=== PATIENT | male | born 1935 | race African-American/Black ===

== ENCOUNTER 2016-09-15 18:22 | Inpatient (IN) | payer OTHER ==
[~2016-09-15] VITALS: Ht 175.3 cm; Wt 71.2 kg
--- NOTE | ~2016-09-15 | HC ---
[facility] [place] [address] CONSULTATION Name: MARK PEMBERTON Room #: 402-P [facility] IN M.R.#: [id number] Admission: 09/15/16 Attend Phys: Olayinka Smith MD Discharge: Date of : 36 Report #: [id number] THIS REPORT FOR: //name// CC: Olayinka Serrato REASON FOR CONSULTATION: The patient is an 81-year-old male with anemia and hematemesis. He does have a history of esophagitis. HISTORY OF PRESENT ILLNESS: This 81-year-old male is a poor historian. According to the medical record, he had dark brown emesis yesterday. He was brought to [facility] Emergency Room. His hemoglobin was 8.8 initially and upon repeat this morning, it was 7.0. Review of his labs indicates that he has had a longstanding history of anemia and microcytosis. He has been anemic going all the way back to the beginning of his data in the computer to June 2012, and a hemoglobin of 9.4, and at that time he had an MCV of 85. His MCV has been drifting down since that time and it is now to a new low for this patient at 59.3. White count is 13.8. His electrolytes are normal. BUN is elevated at 34. Last January, it was 13. His creatinine is 2.6. Last January, it was 1.3. Albumin was 3.5, lactic acid was 3.1. Last January iron studies revealed a serum iron of 10, TIBC of 310 and a saturation of 3%. His ferritin this past January was 8. It is noted in August of 2014, he had a B12 of 219. At that time, his folic acid was 8.3. The patient does report vomiting; however, he cannot tell me much about it. He also cannot tell me much about his stools. It was noted in March of 2015, he did have Hemoccult positive stool. He has had several upper endoscopies here at [facility], with the last in January of [address] Thomas. At that time, he had a normal-appearing esophagus. His upper esophagus is normal mid and distally. There are multiple ulcerations consistent with severe grade D erosive esophagitis. There was a large amount of food and liquid in the stomach suggesting the possibility of gastroparesis. Duodenum was normal. Pathology revealed gastritis that was negative for H. pylori. Esophageal biopsies revealed gastric fundal type mucosa with acute inflammatory changes. Intestinal metaplasia was not seen. CMV and HSV veins were negative. PAST MEDICAL HISTORY: Apparently he has had C. diff colitis in the past. He has had a DVT, IVC filter was placed. He has been treated for high blood pressure and hemorrhoids. He apparently had colon surgery for benign colon lesion. He does have a history of ulcer disease. He has stage III chronic kidney disease. He has been treated for reflux. He has also had a hernia repair. ALLERGIES: No known allergies. HOME MEDICATIONS: He cannot tell me his home medicines, but listed in the [facility] [address] [place] [address] CONSULTATION Name: MARK PEMBERTON Room #: 402-P ADM IN M.R.#: [id number] Admission: 09/15/16 Attend Phys: Olayinka Smith MD Discharge: Date of : 36 Report #: [id number] database are acetaminophen, omeprazole 20 mg daily and sucralfate 1 gram a.c. and at bedtime. FAMILY HISTORY: Reports there is no family history of colon cancer. SOCIAL HISTORY: He lives in his own home. He is cared for by family. He never smoked cigarettes. He did smoke pipe in the past. He has never consumed much alcohol. I do not see that the patient has been on iron therapy. REVIEW OF SYSTEMS: GENERAL: No change in weight, fever or chills. CENTRAL NERVOUS SYSTEM: He denies seizures or strokes. EARS, NOSE AND THROAT: He says his vision and hearing are good for his age. PULMONARY: No cough. He has had pneumonia in the past. No history of tuberculosis. Smoked pipes in the past. CARDIOVASCULAR: No chest pain, chest tightness or palpitations. GASTROINTESTINAL: He has had recent vomiting and hematemesis. He has had a benign colon lesion removed in the past. It is not clear the timing of his last colonoscopy. GENITOURINARY: Chronic kidney disease stage 3 without dysuria. MUSCULOSKELETAL: No arthralgias or myalgias. SKIN: Without rashes. PSYCHIATRIC: No depression, no anxiety or bipolar illness. ENDOCRINE: He denies diabetes or thyroid problems. HEMATOLOGIC: No bleeding or bruising, no malignancy. PHYSICAL EXAMINATION: GENERAL: The patient is a well-developed, well-nourished and pleasant male who is awake, alert and oriented, in no acute distress. I am told that he has periods of confusion, but he seemed to be alert and oriented this morning; however, he does not give a lot of details. I am uncertain about the details of his history. VITAL SIGNS: Blood pressure 97/56 and pulse 72. HEENT: He is anicteric. Pupils equal and round. Oropharynx clear. NECK: Supple. CHEST: Clear. HEART: Regular rate and rhythm, normal S1 and normal S2. ABDOMEN: Well-healed midline scar. Normal bowel sounds, soft and nontender, without hepatosplenomegaly or masses. RECTAL: Not done. EXTREMITIES: Without peripheral edema. NEUROLOGIC: Oriented to place, place and time, moves all 4 extremities well. ASSESSMENT: 1. Hematemesis. 2. Iron deficiency anemia. [facility] [address] [place] [address] CONSULTATION Name: MARK PEMBERTON Room #: 402-P [facility] IN M.R.#: [id number] Admission: 09/15/16 Attend Phys: Olayinka Smith MD Discharge: Date of : 36 Report #: [id number] 3. History of B12 deficiency. 4. Chronic kidney disease, stage III. 5. History of colon lesion. 6. Gastroparesis. 7. History of deep vein thrombosis with indwelling filter. COMMENTS: There is a report of hematemesis. He has had esophagitis in the past. He denies symptoms. He currently is on omeprazole. I suspect he has mostly chronic iron deficiency anemia, which it looks like it has never been well managed, as well as acute blood loss with hematemesis. Also, it looks like he has had B12 deficiency in the past. RECOMMENDATIONS: 1. Upper endoscopy this morning to evaluate the hematemesis. 2. He will likely need more intensive therapy for his gastroesophageal reflux. 3. Consider further treatment for gastroparesis depending on endoscopic findings. He had been on metoclopramide at some point in the past. 4. We will check B12 level. 5. Iron replacement, we will give him iron infusions here in the hospitalization. 6. If reflex is not well controlled, an antireflux procedure may be indicated, although the patient is 81 years' old. 7. Also M2 capsule study may be a consideration as well. <ELECTRONICALLY SIGNED> By: Primitivo Araiza MD 09/18/16 1225 0825 1425 Primitivo Araiza MD /nt
--- NOTE | ~2016-09-15 | P ---
[facility] [place] [address] PROCEDURE REPORT Name: MARK PEMBERTON JR Room #: 402-P [facility] IN M.R.#: [id number] Admission: 09/15/16 Attend Phys: Olayinka Smith MD Discharge: Date of : 36 Report #: [id number] THIS REPORT FOR: //name// CC: Olayinka Ward DO BRIEF HISTORY: The patient is an 81-year-old male with hematemesis. He has a known history of esophagitis and iron deficiency anemia. There is also questionable prior history of Linares esophagus. PREOPERATIVE DIAGNOSIS: Hematemesis. POSTOPERATIVE DIAGNOSES: 1. Severe grade D esophagitis, cannot exclude Linares's. 2. Gastric deformity consistent with prior gastric surgery, questionably enterectomy. 3. Retained black material in the stomach consistent with upper GI bleeding. MEDICATIONS: Deep sedation with propofol per anesthesia. SPECIMEN: None. ESTIMATED BLOOD LOSS: None. PROCEDURE: EGD. FINDINGS: Prior to propofol sedation, procedure of upper endoscopy was discussed with the patient, all potential risks, benefits, and complications. He indicates he understands and desires to proceed. With the patient in left lateral decubitus position, the Sifti video endoscope was inserted in the cervical esophagus under direct vision without difficulty. Examination of this organ through its entire length revealed normal esophageal mucosa in the very proximal esophagus; however, the scope was advanced in the mid esophagus, there was noted to be extensive esophagitis or ulceration and friability and some blackish material, but no active bleeding. These findings are similar to previous endoscopic findings. The scope was advanced in the gastroesophageal junction, a hiatus hernia was not seen. No strictures or masses were seen. Scope was advanced in the stomach, was examined on end view as well as retroflexed views. The gastric mucosa was coated with blackish material consistent with upper GI bleeding. Bright red blood was not seen. Active bleeding was not seen. There was a fairly large the stomach was quite limited. That was too thick to aspirate through the scope. Examination of the cardia did not reveal an obvious mass lesion. Examination of distal stomach revealed a gastroduodenal anastomosis. He probably had an enterectomy. However, he does not have specific details on that surgical procedure. The [address] [address] PROCEDURE REPORT Name: MARK PEMBERTON Room #: 402-P [facility] IN ..#: [id number] Admission: 09/15/16 Attend Phys: Olayinka Smith MD Discharge: Date of : 36 Report #: [id number] duodenal bulb appears to be intact. I could see the papilla in the second portion of duodenum and there was a small diverticulum located by the papilla. There was clear yellow bile in the duodenum. The third portion of duodenum was unremarkable. At that point, the scope was slowly withdrawn and careful circumferential views confirmed the above findings. The patient tolerated the procedure well. DISPOSITION: The patient with chronic iron deficiency anemia with declining MCV. Once again, demonstration of severe esophagitis. There is old blood in the stomach suggesting this is the source of his blood loss. We will place him on b.i.d. PPI. Also, place him on sucralfate suspension. He needs very intensive management of reflux disease. He has had gastroparesis in the past and we will place him on IV metoclopramide at this point in time. However, he may be better served with the use of erythromycin on a long-term basis. Previous biopsies for H. pylori were negative. I did not biopsy the esophagus due to the severe esophagitis. However, we should return in about 6-8 weeks for repeat endoscopy and hopefully biopsy the esophagus with hopefully clear esophagitis. He is also iron deficient and we will replace iron. He has been B12 deficient in the past and we will check a B12 level once again. In addition, we will discuss with family in our system there was no record of a colonoscopy. Certainly, he is bleeding from the upper GI tract at this point in time, but in view of his iron deficiency anemia, we need to make sure that he has had a previous examination of his colon. <ELECTRONICALLY SIGNED> By: Primitivo Araiza MD 09/18/16 1225 0901 0934 Primitivo Araiza MD /nt
--- NOTE | ~2016-09-15 | EKG ---
[place] [address] [employer] [facility] [address] ELECTROCARDIOGRAM REPORT Name: NILAYMARK Room #: 219-P ADM IN M.R.#: [id number] Admission: 09/15/16 Attend Phys: Olayinka Smith MD Discharge: Date of : 36 Report #: [id number] THIS REPORT FOR: //name// [facility] ED Test Date: 2016-09-15 Test Time: 19:08:25 Pat Name: MARK PEMBERTON Department: Room: 219 Gender: M Mouthpiece Maker: MZOOK : 1935 Requested By: Madelin Flannery Order Number: [id number] MD: Sudeep Armenta Measurements Intervals [place] Rate: 124 P: 46 TN: 140 QRS: -28 QRSD: 79 T: 37 QT: 368 QTc: 529 Interpretive Statements Atrial tachycardia Minimal ST depression ST elevation, consider inferior injury Baseline wander in lead(s) I,II,aVR,aVL Compared to ECG 01/06/2016 17:17:48 ST (T wave) deviation now present Sinus tachycardia no longer present Myocardial infarct finding still present Electronically Signed On 09-16-2016 8:21:05 ORTHOTIC AND PROSTHETIC TECHNICIAN by Sudeep Armenta [email or web address] <ELECTRONICALLY SIGNED> By: Sudeep Armenta MD 09/16/16 0821 07 07 Sudeep Armenta MD /EPI
[~2016-09-15 18:22] MED LIST: AMOXICILLIN500 M1 PO; ASA5UEC PO; ASPIRIN EC325 M1 PO; B12INJ IM; BIAXIN 250MG T250 M1 PO; BIAXIN 500 MG500 M2; CARAFATE 1 GM TA1 G1 PO; CEPHALEXIN 500500 M1; CIPROFLOXACIN500 M1 PO; DEXILANT60 MG PO; ERYPED 200200 MG/51 PO; FLAGYL500 MG PO; HYDROCODONE-AP1 EAC6 PO; LANSOPRAZOLE30 MG PO; LASIX 20 MG TAB20 MG PO; LASIX 40 MG TAB40 M2 PO; LISINOPRIL10 MG PO; LISINOPRIL20 MG PO; LOMOTIL TABLET1 EACH PO; MEGESTROL40 MG/1 M1; NORCO 5-325 TA1 EACH PO; PEPCID20 MG PO; PROTONIX40 M1 PO; REGLAN 10 MG TA10 MG PO; TYLENOL325 MG PO; VANCOMYCIN100 MG/M1 NG
[2016-09-15 18:30] VITALS: BP 120/66
[2016-09-15] MEDS ORDERED: OMEPRAZOLE20 M1 PO (18:52)
[2016-09-15 19:01] LABS: HEMATOCRIT 28.6 % (42.0-52.0); HEMOGLOBIN 8.8 gm/dL (14.0-18.0); MCH 18.3 pg (26.0-34.0); MCHC 30.8 % (28.0-37.0); MCV 59.3 fL (80.0-100.0); PLATELET COUNT 338 thou/uL (150-400); RBC 4.83 mil/uL (4.50-6.00); RDW 17.2 % (10.5-14.5); WBC 13.8 thou/uL (4.0-11.0)
[2016-09-15 19:07] LABS: MANUAL DIFF YES
[2016-09-15 19:14] LABS: ANION GAP 15 mmol/L (7-16); BUN 34 mg/dL (7-18); CALCIUM 9.1 mg/dL (8.5-10.1); CHLORIDE 103 mmol/L (98-107); CO2 21 mmol/L (21-32); CREATININE 2.6 mg/dL (0.6-1.3); GLUCOSE 115 mg/dL (70-99); POTASSIUM 5.1 mmol/L (3.5-5.1); SODIUM 139 mmol/L (136-145)
[2016-09-15 19:19] LABS: ALBUMIN 3.5 g/dL (3.4-5.0); ALKALINE PHOSPHATASE 89 U/L (46-116); SGOT 21 U/L (15-37); SGPT 12 U/L (30-65); TOTAL BILIRUBIN 0.6 mg/dL (<0.1-1.0); TOTAL PROTEIN 6.9 g/dL (6.4-8.2); TROPONIN-I < 0.04 ng/mL (<0.04-0.07)
[2016-09-15 19:29] LABS: ABSOLUTE NEUTROPHILS 11.9 thou/uL (1.4-8.2); TOTAL CELL COUNT 100
[2016-09-15 19:30] LABS: ANISOCYTOSIS 1+; MICROCYTES 1+
[2016-09-15 21:42] VITALS: BP 108/58
[2016-09-15 21:57] LABS: URINE BILIRUBIN NEGATIVE (Negative); URINE BLOOD NEGATIVE (Negative); URINE COLOR YELLOW; URINE GLUCOSE-RANDOM* NEGATIVE (Negative); URINE KETONES TRACE (Negative); URINE LEUKOCYTES-REFLEX NEGATIVE (Negative); URINE PROTEIN (DIPSTICK) NEGATIVE (Negative)
[2016-09-15 22:15] VITALS: BP 104/61
[2016-09-15 23:35] VITALS: BP 113/60
[2016-09-16 03:53] LABS: HEMATOCRIT 23.2 % (42.0-52.0)
[2016-09-16 04:00] VITALS: BP 97/56
[2016-09-16 05:38] VITALS: BP 92/48; BP 93/49; BP 96/59
[2016-09-16 13:05] VITALS: BP 122/64
[2016-09-16 13:38] LABS: HEMATOCRIT 26.9 % (42.0-52.0); HEMOGLOBIN 8.4 gm/dL (14.0-18.0); MCHC 31.4 % (28.0-37.0); MCV 63.8 fL (80.0-100.0); RBC 4.21 mil/uL (4.50-6.00); RDW 18.5 % (10.5-14.5); WBC 7.6 thou/uL (4.0-11.0)
[2016-09-16 14:01] LABS: ALBUMIN 2.9 g/dL (3.4-5.0); ALKALINE PHOSPHATASE 71 U/L (46-116); ANION GAP 9 mmol/L (7-16); BUN 30 mg/dL (7-18); CALCIUM 8.4 mg/dL (8.5-10.1); CHLORIDE 107 mmol/L (98-107); CO2 23 mmol/L (21-32); CREATININE 1.9 mg/dL (0.6-1.3); GLUCOSE 125 mg/dL (70-99); POTASSIUM 4.1 mmol/L (3.5-5.1); SGOT 7 U/L (15-37); SGPT 9 U/L (30-65); SODIUM 139 mmol/L (136-145); TOTAL BILIRUBIN 0.5 mg/dL (<0.1-1.0); TOTAL PROTEIN 5.6 g/dL (6.4-8.2); TROPONIN-I < 0.04 ng/mL (<0.04-0.07)
[2016-09-16 15:25] VITALS: BP 94/58
[2016-09-16 19:05] VITALS: BP 75/43
[2016-09-17 04:00] VITALS: BP 100/61
[2016-09-17 06:17] LABS: HEMATOCRIT 23.7 % (42.0-52.0); HEMOGLOBIN 7.6 gm/dL (14.0-18.0); MCHC 31.9 % (28.0-37.0); MCV 62.8 fL (80.0-100.0); RBC 3.78 mil/uL (4.50-6.00); RDW 18.8 % (10.5-14.5); WBC 7.2 thou/uL (4.0-11.0)
[2016-09-17 09:25] VITALS: BP 111/65
[2016-09-17 12:26] VITALS: BP 111/65
[2016-09-17 12:41] VITALS: BP 111/65
[2016-09-17 16:00] VITALS: BP 129/69
[2016-09-17 18:22] LABS: HEMATOCRIT 30.4 % (42.0-52.0); HEMOGLOBIN 9.5 gm/dL (14.0-18.0)
[2016-09-17 20:00] VITALS: BP 123/70
[2016-09-18] VITALS: BP 132/70
[2016-09-18 04:00] VITALS: BP 147/71
[2016-09-18 08:00] VITALS: BP 126/61
[2016-09-18 09:14] LABS: HEMATOCRIT 27.6 % (42.0-52.0); HEMOGLOBIN 8.7 gm/dL (14.0-18.0); MCH 20.2 pg (26.0-34.0); MCHC 31.5 % (28.0-37.0); MCV 64.1 fL (80.0-100.0); RBC 4.31 mil/uL (4.50-6.00); RDW 18.8 % (10.5-14.5)
[2016-09-18 10:32] VITALS: BP 111/65
[2016-09-18] MEDS ORDERED: REGLAN 10 MG TA10 MG PO (11:53)
[2016-09-18] MEDS ORDERED: OMEPRAZOLE20 M1 PO (11:53)
[2016-09-18 14:55] VITALS: BP 111/65
[2016-09-18 15:43] VITALS: BP 111/65
== END 2016-09-18 15:47 | disposition home health service (06) | DRG 377 ==
LOC: ER 18:22 → 2N 20:52 → EROBS 20:52 → 2N 21:58 → 4N 09-16 19:24
PROVIDERS: Emergency Medicine; Family Medicine; Hospitalist; Internal Medicine Gastroenterology; Nurse Practitioner
PROC: 0DJ08ZZ Inspection of Upper Intestinal Tract, Via Natural or Artificial Opening Endoscopic (ICD-10-PCS; principal; 2016-09-16)
PROC: 30233N1 Transfusion of Nonautologous Red Blood Cells into Peripheral Vein, Percutaneous Approach (ICD-10-PCS; principal; 2016-09-16)
DX: K92.0 Hematemesis (principal); N17.0 Acute kidney failure with tubular necrosis; I13.0 Hypertensive heart and chronic kidney disease with heart failure and stage 1 through stage 4 chronic kidney disease, or unspecified chronic kidney disease; D62 Acute posthemorrhagic anemia; E44.0 Moderate protein-calorie malnutrition; K92.2 Gastrointestinal hemorrhage, unspecified; K20.9 Esophagitis, unspecified; I50.9 Heart failure, unspecified; R11.10 Vomiting, unspecified; N18.3 Chronic kidney disease, stage 3 (moderate); K21.9 Gastro-esophageal reflux disease without esophagitis; F10.21 Alcohol dependence, in remission; K31.84 Gastroparesis; K20.8 Other esophagitis; I25.2 Old myocardial infarction; Z86.19 Personal history of other infectious and parasitic diseases; Z79.899 Other long term (current) drug therapy; Z87.11 Personal history of peptic ulcer disease; Z86.718 Personal history of other venous thrombosis and embolism; Z68.23 Body mass index [BMI] 23.0-23.9, adult
CPT/HCPCS: 10081; 10790; 62110; 62900; 70005

== ENCOUNTER 2017-01-07 15:59 | Inpatient (IN) | payer OTHER ==
[~2017-01-07] VITALS: Ht 175.3 cm; Wt 70.5 kg
--- NOTE | ~2017-01-07 | P ---
[facility] [place] [address] PROCEDURE REPORT Name: MARK PEMBERTON JR Room #: 444-P [facility] IN M.R.#: [id number] Admission: 01/07/17 Attend Phys: Yesi Nettles Discharge: 01/09/17 Date of : 36 Report #: [id number] THIS REPORT FOR: //name// CC: Yesi Ward DO DATE OF SERVICE: 01/08/2017 PROCEDURE: Diagnostic EGD. PATIENT OF: Dr. Nettles and Dr. Khurram Ward. CHIEF COMPLAINT: The patient presented to the Emergency Room with a history of coffee ground emesis. 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 He has been nauseated. DESCRIPTION OF PROCEDURE: Informed consent for this procedure was obtained prior to the administration of any medication. The risks of the procedure which include bleeding, perforation, infection, complications of sedation and the possibility I could miss something have been explained to the patient and he has indicated his consent by signing and his daughter has indicated her consent verbally for him to have this done. The patient has some dementia. A total of fentanyl 25 mcg and Versed 2 mg was slowly titrated before and during this procedure for patient comfort by the GI nurses. The [employer] upper videoscope was introduced through the upper esophageal sphincter and advanced under direct visualization to the descending duodenum. Findings noted on withdrawal of the scope. The duodenal mucosa appears normal throughout its entirety. Pylorus, normal mucosa. Antrum, normal mucosa. Body, normal mucosa. Cardia and fundus, normal mucosa. There is old black blood in the proximal stomach at least old black liquid material in his proximal stomach, suctioned away as well as I could. I took pictures of everything in the upper GI tract and submitted them. There did not appear to be a hiatal hernia at this time. The scope was withdrawn into the esophagus. There is not really a clear Z-line until get up to about the mid esophagus. The patient has a history of Linares's ectopic mucosa. He also has a history of multiple episodes of grade D esophagitis that have led to cautery brown emesis such as this admission. The more proximal esophageal mucosa appears normal. The scope was withdrawn. The patient went to the recovery area in stable condition. He tolerated the procedure well. IMPRESSION: 1. Normal stomach and duodenum except for old dark blood in the stomach, but I think came from his esophagitis. [facility] [address] [place] [address] PROCEDURE REPORT Name: MARK PEMBERTON Room #: 444-P [facility] IN M.R.#: [id number] Admission: 01/07/17 Attend Phys: Yesi Nettles Discharge: 01/09/17 Date of : 36 Report #: [id number] 2. Erosions and erythema of the distal 10 cm of the esophagus. My recommendations were for him to be on proton pump inhibitors as he is. We will also add Carafate slurry 1 gram p.o. a.c. and at bedtime. We will check an H and H on him in the morning and we will start him on a soft diet tonight. Thank you very much once again for allowing me to participate in his care, Dr. Nettles and Dr. Ward. <ELECTRONICALLY SIGNED> By: Sherine Prado DO 01/14/17 1559 1823 2342 Sherine Prado DO /nt
--- NOTE | ~2017-01-07 | EKG ---
[place] [address] [facility] [place] [address] ELECTROCARDIOGRAM REPORT Name: MARK PEMBERTON [id number] Admission: 01/07/17 Attend Phys: Discharge: Date of : 36 Report #: [id number] THIS REPORT FOR: //name// [facility] ED Test Date: 2017-01-07 Test Time: 16:15:44 Pat Name: MARK PEMBERTON Department: Room: Gender: M Home Health Clinician: efraín : 1935 Requested By: Madelin Flannery Order Number: [id number] MD: Sudeep Armenta Measurements Intervals [place] Rate: 95 P: 29 MT: 183 QRS: -39 QRSD: 97 T: -13 QT: 365 QTc: 459 Interpretive Statements Sinus rhythm Multiple ventricular premature complexes Inferior infarct, old Electronically Signed On 01-07-2017 17:16:33 CDT by Sudeep Armenta [email or web address] <ELECTRONICALLY SIGNED> By: Sudeep Armenta MD 01/07/17 1716 1615 1615 Sudeep Armenta MD /EPI
[~2017-01-07 15:59] MED LIST changes: +OMEPRAZOLE20 M1 PO
[2017-01-07 16:01] VITALS: BP 117/72
[2017-01-07] MEDS ORDERED: LASIX 20 MG TAB20 MG PO (16:09)
[2017-01-07 16:45] LABS: HEMATOCRIT 43.8 % (42.0-52.0); HEMOGLOBIN 13.8 gm/dL (14.0-18.0); MCH 26.1 pg (26.0-34.0); MCHC 31.5 g/dL (28.0-37.0); PLATELET COUNT 217 thou/uL (150-400); RBC 5.27 mil/uL (4.50-6.00); RDW 14.8 % (10.5-14.5); WBC 10.9 thou/uL (4.0-11.0)
[2017-01-07 16:57] LABS: MANUAL DIFF YES
[2017-01-07 16:59] LABS: APTT 26.8 Seconds (24.5-32.8); PROTIME 10.7 Seconds (9.3-11.4)
[2017-01-07 17:01] LABS: ANION GAP 10 mmol/L (7-16); BUN 22 mg/dL (7-18); CALCIUM 8.6 mg/dL (8.5-10.1); CHLORIDE 107 mmol/L (98-107); CO2 23 mmol/L (21-32); CREATININE 1.4 mg/dL (0.7-1.3); GLUCOSE 79 mg/dL (74-106); POTASSIUM 4.4 mmol/L (3.5-5.1); SODIUM 140 mmol/L (136-145)
[2017-01-07 17:07] LABS: ALBUMIN 3.5 g/dL (3.4-5.0); ALKALINE PHOSPHATASE 99 U/L (46-116); NT-PRO BRAIN NAT PEPTIDE 220 pg/mL (<300); SGOT 19 U/L (15-37); SGPT 11 U/L (30-65); TOTAL BILIRUBIN 0.5 mg/dL (<0.1-1.0); TROPONIN-I < 0.04 ng/mL (<0.04-0.07)
[2017-01-07 17:19] LABS: ABSOLUTE NEUTROPHILS 9.5 thou/uL (1.4-8.2); TOTAL CELL COUNT 100
[2017-01-07 20:00] VITALS: BP 126/79
[2017-01-08 00:10] VITALS: BP 124/72
[2017-01-08 04:00] VITALS: BP 130/69
[2017-01-08 06:26] LABS: HEMATOCRIT 35.9 % (42.0-52.0); MCH 26.6 pg (26.0-34.0); MCHC 32.7 g/dL (28.0-37.0); MCV 81.4 fL (80.0-100.0); RBC 4.41 mil/uL (4.50-6.00); RDW 14.4 % (10.5-14.5); WBC 5.2 thou/uL (4.0-11.0)
[2017-01-08 06:41] LABS: HEMOGLOBIN 11.7 gm/dL (14.0-18.0)
[2017-01-08 06:47] LABS: CALCIUM 8.1 mg/dL (8.5-10.1); CREATININE 1.4 mg/dL (0.7-1.3); POTASSIUM 4.1 mmol/L (3.5-5.1)
[2017-01-08 08:00] VITALS: BP 117/62
[2017-01-08 13:07] VITALS: BP 122/61
[2017-01-08 19:29] VITALS: BP 135/66
[2017-01-08 23:50] VITALS: BP 123/72
[2017-01-09 03:58] VITALS: BP 127/62
[2017-01-09 04:42] LABS: HEMATOCRIT 38.2 % (42.0-52.0); HEMOGLOBIN 12.4 gm/dL (14.0-18.0); MCH 26.7 pg (26.0-34.0); MCHC 32.6 g/dL (28.0-37.0); MCV 81.8 fL (80.0-100.0); RBC 4.66 mil/uL (4.50-6.00); RDW 14.8 % (10.5-14.5); WBC 5.4 thou/uL (4.0-11.0)
[2017-01-09 08:00] VITALS: BP 133/71
[2017-01-09] MEDS ORDERED: OMEPRAZOLE20 M1 PO (09:48)
[2017-01-09] MEDS ORDERED: CARAFATE 1 GM TA1 G1 PO (09:48)
[2017-01-09 12:18] VITALS: BP 112/74
[2017-01-09 15:28] VITALS: BP 112/74
[2017-01-09 15:37] VITALS: BP 124/79
== END 2017-01-09 17:30 | disposition home or self-care (01) | DRG 380 ==
LOC: ER 15:59 → 4S 17:36 → EROBS 17:36 → 4S 19:47
PROVIDERS: Emergency Medicine; Nurse Practitioner Acute Care; Nurse Practitioner Adult Health
PROC: 0DJ08ZZ Inspection of Upper Intestinal Tract, Via Natural or Artificial Opening Endoscopic (ICD-10-PCS; principal; 2017-01-08)
DX: K22.10 Ulcer of esophagus without bleeding (principal); N17.0 Acute kidney failure with tubular necrosis; I50.9 Heart failure, unspecified; I11.0 Hypertensive heart disease with heart failure; F03.90 Unspecified dementia, unspecified severity, without behavioral disturbance, psychotic disturbance, mood disturbance, and anxiety; K92.0 Hematemesis; K59.00 Constipation, unspecified; K21.0 Gastro-esophageal reflux disease with esophagitis; Z87.891 Personal history of nicotine dependence; Z88.8 Allergy status to other drugs, medicaments and biological substances; Z86.718 Personal history of other venous thrombosis and embolism
CPT/HCPCS: 10195

== ENCOUNTER 2017-09-11 11:06 | Emergency (ER) | payer OTHER ==
[~2017-09-11] VITALS: Ht 175.3 cm; Wt 74.8 kg
[2017-09-11 12:01] LABS: CALCIUM 9.5 mg/dL (8.5-10.1); CREATININE 1.7 mg/dL (0.7-1.3); POTASSIUM 4.5 mmol/L (3.5-5.1)
[2017-09-11 12:03] LABS: HEMATOCRIT 30.4 % (42.0-52.0); HEMOGLOBIN 9.4 gm/dL (14.0-18.0); MCH 17.6 pg (26.0-34.0); MCHC 30.9 g/dL (28.0-37.0); PLATELET COUNT 318 thou/uL (150-400); RBC 5.34 mil/uL (4.50-6.00); RDW 17.6 % (10.5-14.5); WBC 6.3 thou/uL (4.0-11.0)
[2017-09-11 12:07] LABS: ALBUMIN 3.7 g/dL (3.4-5.0); DIRECT BILIRUBIN 0.1 mg/dL (<0.1-0.3); TOTAL BILIRUBIN 0.4 mg/dL (<0.1-1.0); TOTAL PROTEIN 7.1 g/dL (6.4-8.2)
[2017-09-11 12:21] LABS: ABSOLUTE NEUTROPHILS 4.7 thou/uL (1.4-8.2); ANISOCYTOSIS 1+; MICROCYTES 3+
[2017-09-11 12:22] LABS: HYPOCHROMASIA 3+
[2017-09-11 12:23] LABS: POIKILOCYTOSIS SLIGHT; SCHISTOCYTES OCCASIONAL
[2017-09-11 13:00] LABS: URINE BILIRUBIN NEGATIVE (Negative); URINE BLOOD NEGATIVE (Negative); URINE CLARITY CLEAR; URINE COLOR YELLOW; URINE GLUCOSE-RANDOM* NEGATIVE (Negative); URINE KETONES NEGATIVE (Negative); URINE LEUKOCYTES NEGATIVE (Negative); URINE NITRITE NEGATIVE (Negative); URINE PROTEIN (DIPSTICK) NEGATIVE (Negative)
[2017-09-11 13:38] VITALS: BP 115/82
== END 2017-09-11 13:39 | disposition home or self-care (01) ==
LOC: ER 11:06
PROVIDERS: Nurse Practitioner
DX: R10.9 Unspecified abdominal pain (principal); K59.00 Constipation, unspecified; I50.9 Heart failure, unspecified; I10 Essential (primary) hypertension; F03.90 Unspecified dementia, unspecified severity, without behavioral disturbance, psychotic disturbance, mood disturbance, and anxiety; Z88.8 Allergy status to other drugs, medicaments and biological substances; Z88.6 Allergy status to analgesic agent

== ENCOUNTER 2019-08-15 11:57 | Inpatient (IN) | payer OTHER ==
[~2019-08-15] VITALS: Ht 170.2 cm; Wt 57.6 kg
[~2019-08-15 11:57] MED LIST changes: +ACETAMINOPHEN325 M1 PO; +CARAFATE 11 GM/10 M1 PO; +IRON325 PO; +PANTOPRAZOLE SO40 M1 PO; +PRILOSEC OTC20 MG PO
[2019-08-15 11:58] VITALS: BP 106/58
[2019-08-15 12:32] LABS: ABSOLUTE NEUTROPHILS 9.1 thou/uL (1.4-8.2); BASOPHILS 0.2 % (0.0-2.0); HEMATOCRIT 29.8 % (42.0-52.0); HEMOGLOBIN 9.1 gm/dL (14.0-18.0); LYMPHOCYTES 4.8 % (24.0-44.0); MCH 22.2 pg (26.0-34.0); MCHC 30.6 g/dL (28.0-37.0); MCV 72.4 fL (80.0-100.0); MONOCYTES 6.4 % (1.0-8.0); PLATELET COUNT 248 thou/uL (150-400); POLYS 88.6 % (36.0-66.0); RBC 4.11 mil/uL (4.50-6.00); WBC 10.3 thou/uL (4.0-11.0)
[2019-08-15 12:36] LABS: CALCIUM 9.4 mg/dL (8.5-10.1); CREATININE 2.1 mg/dL (0.7-1.3); POTASSIUM 3.3 mmol/L (3.5-5.1)
[2019-08-15 12:42] LABS: ALBUMIN 2.9 g/dL (3.4-5.0); DIRECT BILIRUBIN 0.3 mg/dL (<0.1-0.3); TOTAL BILIRUBIN 0.7 mg/dL (<0.1-1.0); TOTAL PROTEIN 6.7 g/dL (6.4-8.2)
[2019-08-15 14:08] LABS: ANISOCYTOSIS 1+; MICROCYTES 2+; PLATELET ESTIMATE NORMAL; POLYCHROMASIA SLIGHT
[2019-08-15 15:01] LABS: URINE BILIRUBIN NEGATIVE (Negative); URINE BLOOD TRACE (Negative); URINE CLARITY CLEAR; URINE COLOR YELLOW; URINE GLUCOSE-RANDOM* NEGATIVE (Negative); URINE KETONES NEGATIVE (Negative); URINE LEUKOCYTES-REFLEX 1+ (Negative); URINE NITRITE-REFLEX NEGATIVE (Negative); URINE PROTEIN (DIPSTICK) NEGATIVE (Negative); URINE UROBILINOGEN 0.2 E.U./dl (0.2-1.0)
--- NOTE | 2019-08-15 15:22 | EKG ---
[place] [address] [facility] [place] [address] ELECTROCARDIOGRAM REPORT Name: MARK PEMBERTON Room #: JOAN Ferrer#: [id number] Admission: 08/15/19 Attend Phys: Discharge: Date of : 36 Report #: [id number] THIS REPORT FOR: //name// [facility] ED Test Date: 2019-08-15 Test Time: 11:58:27 Pat Name: MARK PEMBERTON Department: Room: Gender: Clerical Dentist Assistant: JAYDON : 1935 Requested By: Kirsten Baker Order Number: [id number] MD: Sudeep Armenta Measurements Intervals [place] Rate: 116 P: 68 AL: 147 QRS: -32 QRSD: 93 T: -2 QT: 354 QTc: 492 Interpretive Statements Sinus tachycardia Atrial premature complexes Left axis deviation Abnormal R-wave progression, early transition Borderline T wave abnormalities Electronically Signed On 08-15-2019 15:21:55 PUBLICITY MANAGER by Sudeep Armenta [email or web address] <ELECTRONICALLY SIGNED> By: Sudeep Armenta MD 08/15/19 1521 1158 1158 MD [place] Perrin
[2019-08-15 15:26] LABS: CASTS None Seen /LPF (None Seen); MUCUS 0-3 Light strn/LPF (None Seen); SQUAMOUS 4-10 Moderate /LPF (0-3)
[2019-08-15 15:28] LABS: URINE WBC-REFLEX 6-15 Few /HPF (0-5)
[2019-08-15 15:30] LABS: AMORPHOUS URATES Few /LPF (None Seen); URINE RBC 0-2 Rare /HPF (0-2)
[2019-08-15 15:31] LABS: BACTERIA-REFLEX 1-9 Few /HPF (None Seen); RENAL EPITHELIAL CELLS 0-3 Few /LPF (None Seen)
[2019-08-15 16:14] VITALS: BP 150/86
--- NOTE | 2019-08-15 16:31 | NUR ---
THE DEPART NOTE FROM 08/15/19 AT 1614 WAS MADE IN ERROR
[2019-08-15 17:38] VITALS: BP 127/61
[2019-08-15 18:02] VITALS: BP 130/55
--- NOTE | 2019-08-15 18:12 | NUR ---
ASSUMED CARE OF THE PT AT 1745. PT IS ALERT AND AWAKE BUT UNABLE TO RESPOND VERBALLY, JUST NODS. PT IS A REG DIET AND A FALL RISK. R FOREARM IV DRY AND INTACT. LUNGS ARE CLEAR AND NO EDEMA PRESENT. NO N/V PRESENT. FALL PRECAUTIONS ARE IN PLACE, CALL LIGHT IS WITHIN REACH AND BED IS IN THE LOWEST POSITION. WILL CONTINUE TO MONITOR THE PT.
[2019-08-15 19:25] VITALS: BP 123/69
[2019-08-16] VITALS: BP 109/61
[2019-08-16 04:40] VITALS: BP 107/68
--- NOTE | 2019-08-16 05:17 | NUR ---
PT AWAKE, EASY TO AROUSE, ALERT TO PERSON, PLACE, AND TIME. PT EASY TO REDIRECT IN REGARDS TO SITUATION. PT RESPONSES INTERMITTENTLY CONGRUENT TO PROMPTS. PT TONE OF VOICE NOTED TO BE INAUDIBLE, WHISPERED, OR MUMBLING. PT HAS NO REPORTS OF PAIN OR SOA. PT REQUIRED FEEDING ASSISTANCE, PT ABLE TO PUT UTENSIL TO MOUTH. PT NONAMBULATORY AT THIS TIME. PT HAS TWO DPOA FOR CARE, NAMES AND NUMBERS IN CHART AND ON PT BOARD. DPOA/FAMILY NOT AT BEDSIDE AT TIME OF ASSESSMENT. PT RESTING WITHOUT INTERRUPTION OR OBSERVATION OF PAIN OR SOA. ENCOURAGED PT TO NOTIFY STAFF FOR ALL CONCERNS. BED IN LOWEST POSITION, CALL LIGHT IN PLACE, BED ALARM ON. WILL CONTINUE TO MONITOR.
[2019-08-16 05:55] LABS: ABSOLUTE NEUTROPHILS 6.3 thou/uL (1.4-8.2); BASOPHILS 0.2 % (0.0-2.0); EOSINOPHILS 0.6 % (0.0-3.0); HEMATOCRIT 24.6 % (42.0-52.0); HEMOGLOBIN 7.7 gm/dL (14.0-18.0); LYMPHOCYTES 8.4 % (24.0-44.0); MCH 22.6 pg (26.0-34.0); MCHC 31.2 g/dL (28.0-37.0); MCV 72.5 fL (80.0-100.0); MONOCYTES 5.4 % (1.0-8.0); PLATELET COUNT 191 thou/uL (150-400); POLYS 85.4 % (36.0-66.0); RBC 3.39 mil/uL (4.50-6.00); RDW 18.1 % (10.5-14.5); WBC 7.4 thou/uL (4.0-11.0)
[2019-08-16 06:04] LABS: CREATININE 1.3 mg/dL (0.7-1.3); MAGNESIUM 1.8 mg/dL (1.8-2.4); POTASSIUM 3.7 mmol/L (3.5-5.1)
[2019-08-16 07:50] VITALS: BP 102/65
--- NOTE | 2019-08-16 10:18 | NUR ---
PT CARE ASSUMED AT 0700. PT ORIENTED TO PERSON, PLACE, AND TIME. PT. ON BEDREST UNTIL PT EVALUATION. DEXTROSE FLUIDS RUNNING. BLOOD SUGAR AT 56 ORANGE JUICE GIVEN AND RECHECKED BLOOD SUGAR THEN AT 98. DR. QUINTANA NOTIFIED. WILL EVALUATE PT CHART AND INFORM ME OF PROCEEDING PLAN. PT ON ACHS. PT FROM HOME WITH SPOUSE. PT. DIET CHANGED FROM REGULAR TO CARB CONTROL. GUARD IV DUE TO BEING A HARD STICK. PT. FALL RISK. BED IN LOW POSITION, LOCKED, WITH BED ALARM ON. CALL LIGHT WITHIN REACH.
[2019-08-16 11:19] LABS: % SATURATION 8 % (20-39); IRON 15 ug/dL (65-175); TIBC 179 ug/dL (250-450)
--- NOTE | 2019-08-16 12:29 | NUR ---
ASSESSMENT-PT LIVES IN A HOME WITH HIS DTR KESHA. PT USES A ROLLER WALKER TO GET AROUND. PT HAS HAD [facility] IN THE PAST. PT HAS A GRAB BARS AND A SHOWER CHAIR. THERAPIES HAVE BEEN ORDERED TO SEE PT. WILL AWAIT REC. FOLLOWING TO ASSIST WITH DC PLANNING. ANTICIPATE HH VS SNF.
--- NOTE | 2019-08-16 15:02 | NUR ---
WOUND CONSULT; THE LEFT HEEL AND SACRAL AREAS WERE ASSESSED. THE SACRUM HAS A DTI ( AN INTACT BLISTER) WITH BRUISING. THE LEFT HEEL HAS A DTI WELL WITH AN INTACT BLISTER. BOTH THESE WOUNDS WERE PRESENT ON ADMISSION. NO S/S OF INFECTION AT THIS TIME. THE PATIENTS DAUGHTER IS HIS PRIMARY CAREGIVER. SHE STATES HIS HEALTH HAS BEEN DETERIORATIONG RECENTLY. RECOMMENDATIONS; PRAFO BOOTS BILATERALLY TO BE ON THE PATIENT 30/03. A LOW AIRLOSS PUMP WILL BE APPLIED FOR PRESSURE REDUCTION. Q2H TURNING WILL BE EMPLOYED. A HYDROMETER CALIBRATOR CONSULT PLACED. WEDGES/PILLOW FOR OFFLOADING. ZGUARD TO THE SACRUM BID. DISCUSSED WITH ÁLVARO
[2019-08-16 19:50] VITALS: BP 117/55
--- NOTE | 2019-08-17 04:33 | NUR ---
ASSUMED CARE OF PT @1900 PT ASSESSED AT START BLOODSUGAR @31 ADMINISTERED IV PUSH DEXTROSE BLOOD SUGAR BACK TO 67. ADMINISTERED APPLE JUICE AND CRACKERS TONIGHT PT BLOOD SUGAR BACK TO 77. IV INTACT IN RT UA AND DEXTROSE INFUSING. PT ON Q2 TURN AND ON LOW AIRLOSS MATRESS. PERIPHERAL BOOTS ON BOTH EXTRMITIES. ZYGARD APPLIED ON SACRAL FOR REDNESS . PT INCONTINET OF BLADDER. FALL PREC IN PLACE AND FREQ ROUNDING DONE. PT ON 3L OF O2. WILL CONT TO MONITOR TILL EOS.
[2019-08-17 06:01] LABS: HEMATOCRIT 22.9 % (42.0-52.0); HEMOGLOBIN 7.3 gm/dL (14.0-18.0); MCH 22.8 pg (26.0-34.0); MCHC 31.8 g/dL (28.0-37.0); MCV 71.6 fL (80.0-100.0); RBC 3.2 mil/uL (4.50-6.00); RDW 17.9 % (10.5-14.5); WBC 5.2 thou/uL (4.0-11.0)
[2019-08-17 06:15] LABS: CALCIUM 8.2 mg/dL (8.5-10.1); CREATININE 1.1 mg/dL (0.7-1.3); POTASSIUM 3.4 mmol/L (3.5-5.1)
[2019-08-17 07:20] VITALS: BP 113/63
[2019-08-17 13:30] LABS: CALCIUM 8.5 mg/dL (8.5-10.1); CREATININE 1.1 mg/dL (0.7-1.3)
[2019-08-17 13:32] LABS: POTASSIUM 4.4 mmol/L (3.5-5.1)
[2019-08-17 16:00] VITALS: BP 114/60
[2019-08-17 20:30] VITALS: BP 112/56
[2019-08-18 02:07] LABS: GLYCOHEMOGLOBIN (HGB A1C) 5.3 % (4.8-5.6)
--- NOTE | 2019-08-18 02:36 | NUR ---
ASSUMED CARE OF PT @1900 PT ASSESSED AT START OF SHIFT IV INTACT AND FLIUDS INFUSING. PT IN CONTINENT. TURNED FREQUENTLY ZYGARD APPILED TO SACRAL. BEDTIME BLOOD SUGAR ASSESSED 141 NO INSULIN GIVEN. FALL PREC IN PLACE, HOURLY ROUNDING DONE WILL CONT WITH POC TILL EOS.
[2019-08-18 03:45] VITALS: BP 136/71
[2019-08-18 07:55] VITALS: BP 116/67
--- NOTE | 2019-08-18 09:55 | NUR ---
PT CARE ASSUMED AT 0700. PT. MORE ALERT TODAY THEN THE LAST TWO DAYS. PT. RESPONDS TO QUESTIONS MORE PROMPT AND OPENS EYES WHEN BEING TALKED TO. PT IS Q2 TURNS WITH WEDGE. PT SACRAL WOUND HAS A NEW TEAR. WOUND HAS SEEN IT AND NEW PICTURE WAS TAKEN. TEAR IS BEING COVERED WITH ZGUARD AND A FOAM PAD. PT. INCONTINENT TO BLADDER. NO BM YET. AWAITING OCCULT SAMPLE TO BE COLLECTED. GLUCOSE TO BE COLLECTED FROM EAR LOBE. VALUES STABLE AT 118. FLUIDS RUNNING. IV FLUSHES WITH NO REDNESS OR SWELLING. BED IN LOW POSITION, LOCKED, AND BED ALARM ON. CALL LIGHT IN REACH
--- NOTE | 2019-08-18 10:00 | NUR ---
PT. CARE ASSUMED AT 0700. A&Ox4. PT HAS HAD A BATH THIS MORNING AND GET UP TO USE THE BATHROOM FREQUENTLY. PT HAVING PT EVALUTAION TODAY AND IS AWAITING POSSIBLE DISCHARGE TODAY. PT. PAIN IS WELL TOLERATED WITH PAIN MEDICATION AND POLAR PACK. POLAR PACK IN PLACE. DON DRESSING INTACT WITH NO REDNESS OR SWELLING. SCD IN PLACE ON RIGHT LEGS. POLINA HOSES IN PLACE. PT REQUESTING FLU VACCINE.
--- NOTE | 2019-08-18 10:23 | NUR ---
WOUND CARE F/U assessed wounds w/ catering staff memberÁLVARO jennings heel ulcer stable, no drainage, conts to wear prafo boots at all times, sacral wound more open today, skin tearing off, photo taken, advised zguard w/ border foam drsg now daily and prn, encouraged off loading/pressure relief, turning q 2 hours RECOMMENDATIONS cont prafo boots at all times, zguard and border foam drsg to sacral wound daily and prn, keep off wound as much as possible, turn q2
--- NOTE | 2019-08-18 12:52 | NUR ---
S/W DTR KESHA BY PHONE AND SHE SAYS DAD DOES NOT WANT TO DO REHAB AGAIN. SHE IS AWARE HE IS TOTAL CARE NOW AND SAYS THEY TALKED ABOUT THIS RECENTLY AND HE WANTS PALLIATIVE/HOSPICE CARE IF DR AGREES. S/W DR QUINTANA AND HE SAYS PT IS HOSPICE APPROPRIATE. KESHA IS CO-DPOA WITH HER SISTER NELI AND SHE WILL TALK WITH THE REAST OF THE FAMILY. THEY WANT HOSPICE. KESAH KNOWS SOMEONE THAT WORKS THERE. S/W HOSPICE TO GIVE THEM THE REFERRAL AND THEY WILL COORDINATE WITH KESHA TO GET SOMEONE HERE TO EVAL PT. PLAN IS TO DC HOME WITH HOSPICE TOMORROW. KESHA AWARE OF THIS AND AGREEABLE. ASKED DC LEADERSHIP DEVELOPMENT INSTRUCTOR TO FAX REFERRAL TO HOSPICE.
[2019-08-18 16:01] LABS: HEMATOCRIT 31.4 % (42.0-52.0); MCH 22.2 pg (26.0-34.0); MCHC 30.5 g/dL (28.0-37.0); MCV 72.7 fL (80.0-100.0); RBC 4.32 mil/uL (4.50-6.00); RDW 18.4 % (10.5-14.5); WBC 8.4 thou/uL (4.0-11.0)
[2019-08-18 16:06] LABS: HEMOGLOBIN 9.6 gm/dL (14.0-18.0)
[2019-08-18 16:10] LABS: CALCIUM 9.4 mg/dL (8.5-10.1); CREATININE 1.1 mg/dL (0.7-1.3); POTASSIUM 4.7 mmol/L (3.5-5.1)
--- NOTE | 2019-08-18 16:26 | NUR ---
RECEIVED CALL BACK FROM KEELEY FROM HOSPICE AND SHE SAYS THEY WOULD LIKE TO HAVE PT DISCHARGED TOMORROW AND MEET AT THE HOUSE TO GET HIM ASSESSED FOR HSOPICE CARE. THEY HAVE COORDINATED WITH OPAL REBOLLEDO. WILL ALERT DR QUINTANA.
--- NOTE | 2019-08-18 16:32 | NUR ---
FAXED REFERRAL TO HOSPICE. [facility] IN ADMISSIONS RECEIVED REFERRAL. THEY WILL FOLLOW UP WITH FAMILY TO ARRANGE TIME OF EVALUATION.
[2019-08-18 17:23] VITALS: BP 106/66
[2019-08-18 19:40] VITALS: BP 136/55
--- NOTE | 2019-08-19 03:40 | NUR ---
ASSUMED CARE OF PT @1900 PT ASSESED AT START OF SHIFT A&O2 IV INTACT AND FLUIDS INFUSING. Q2 TURN DONE AND DRESSING APPILED TO SACRAL WOUND. PRAFO BOOTS ON BLE. BLOODSUGAR CHECK DONE NO INAULIN ADMINISTERED. PT PATRIC MEDS FINE AND ATE SOME MIDNIGHT SNACKS THIS SHIFT. INCONTINENT OF BLADDER. FALL PREC IN PLACE AND FREQ ROUNDING DONE WILL CONT WITH POC TILL EOS.
[2019-08-19 04:36] VITALS: BP 108/58
[2019-08-19 07:35] VITALS: BP 100/52
[2019-08-19 09:59] VITALS: BP 100/52
--- NOTE | 2019-08-19 10:24 | NUR ---
WOUND CARE F/U assessed wounds w/ balance staff inspector NADINE, left heel ulcer same, stable, no drainage, wearing prafo boots both legs, sacral wound w/ some skin sloughing off, pink viable tissue seen, scant drainage, more alert today, cooperative,possible dc to hospice today, encouraged to keep off wounds RECOMMENDATIONS cont current tx, zguard and border foam drsg to sacral area, prafo boots to feet to wear 24 hours, turn q2, pressure relief/ off loading, encouraged to keep off wounds, balance staff inspector aware
--- NOTE | 2019-08-19 13:53 | NUR ---
PATIENT DISCHARGING TO HOME WITH HOSPICE. FAXED DC ORDERS. RECEIVED CONFIRMATION. THEY WILL MEET FAMILY AT HOME TODAY, 08/19/19 AT 13:00. TRANSPORTATION ARRANGED BY AMBULANCE TO HOME FOR 12:00. FAMILY NOTIFIED BY NETWORK ARCHITECT AT BEDSIDE OF TIME OF TRANSPORT. UNIT NOTIFED.
--- NOTE | 2019-08-19 14:24 | NUR ---
ASSUMED CARE OF THE PT AT 0700. PT IS A HIGH FALL RISK AND FALL PRECAUTIONS ARE IN PLACE. PT IV R UPPER ARM WAS DRY AND INTACT, WAS REMOVED BECAUSE PT WAS DISCHARGED.SACRUM WOUND WAS MOIST AND INTACT, L HEEL DRY AND INTACT, DRESSING CHANGED AND PICTURE TAKEN. PTS LUNGS ARE CLEAR AND NO C/O PAIN. PT HAS ON BOOTS BILATERAL AND WAS DISCHARGED HOME WITH ALL BELONGINGS BY TRANSPORTATION.
== END 2019-08-19 13:35 | disposition hospice, home (50) | DRG 640 ==
LOC: ER 11:57 → 4S 16:16 → EROBS 16:16 → 4S 17:49
PROVIDERS: Emergency Medicine; Nurse Practitioner; ADMIT Hospitalist
DX: E86.0 Dehydration (principal); G93.41 Metabolic encephalopathy; N17.0 Acute kidney failure with tubular necrosis; N39.0 Urinary tract infection, site not specified; E46 Unspecified protein-calorie malnutrition; Z68.1 Body mass index [BMI] 19.9 or less, adult; E87.0 Hyperosmolality and hypernatremia; E87.6 Hypokalemia; N18.3 Chronic kidney disease, stage 3 (moderate); K21.9 Gastro-esophageal reflux disease without esophagitis; F03.90 Unspecified dementia, unspecified severity, without behavioral disturbance, psychotic disturbance, mood disturbance, and anxiety; I12.9 Hypertensive chronic kidney disease with stage 1 through stage 4 chronic kidney disease, or unspecified chronic kidney disease; D50.9 Iron deficiency anemia, unspecified; E16.2 Hypoglycemia, unspecified; Z66 Do not resuscitate; K20.9 Esophagitis, unspecified; Z86.718 Personal history of other venous thrombosis and embolism; Z87.891 Personal history of nicotine dependence
CPT/HCPCS: 10195